=== PATIENT | male | born 1960 | race Caucasian/White ===

== ENCOUNTER 2023-03-26 15:54 | Outpatient (CLI) | payer MEDICAID, SELFPAY ==
--- NOTE | 2023-03-26 16:04 | XR_ITS ---
WS: [id number] Cervical spine, 3 views, 03/26/2023 Clinical Data: CERVICALGIA Comparison: None. Findings: No compression fractures are seen. There is degenerative disc narrowing at C5-C6 and C6-C7 with accompanying osteophyte formation. There is facet joint arthritis at C4-C5 on the right There is no prevertebral soft tissue swelling. The odontoid is unremarkable. The soft tissues of the neck and the lung apices are normal. XR/XR cervical spine 3V* [id number] Impression: 1. 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 2. Facet joint arthritis on the right at C4-C5
== END 2023-03-26 15:55 | disposition home or self-care (01) ==
LOC: RAD 15:58
PROVIDERS: PCP Family Medicine; Visit Provider Nurse Practitioner Psychiatric/Mental Health
DX: M54.2 Cervicalgia (principal); M47.892 Other spondylosis, cervical region
CPT/HCPCS: 72040